=== PATIENT | male | born 1985 | race Caucasian/White ===

== ENCOUNTER 2016-05-11 10:31 | Emergency (ER) | payer SELFPAY ==
[~2016-05-11] VITALS: Ht 167.6 cm; Wt 74.5 kg
[~2016-05-11 10:31] MED LIST: IBUP800T23 PO; METH750T2 PO
[2016-05-11 10:35] VITALS: BP 109/78; PULSE 71; RESP 16; TEMP 98.1; O2SAT 98
[2016-05-11] MEDS ORDERED: LIDO3CRE TOPICAL (11:05)
[2016-05-11] MEDS ORDERED: PSYLPOW4 PO (11:06)
[2016-05-11] MEDS ORDERED: NORC5TAB PO (11:06)
--- NOTE | 2016-05-11 11:07 | PD ---
HPI Chief Complaint: Skin Problem Time Seen by Provider: 10:50 Travel History International Travel<30 days: No Contact w/Intl Traveler<30days: No Traveled to known affect area: No History of Present Illness HPI Patient is a 30 year old male presents to the ER for evaluation of a painful growth on his buttocks. He had been talking to his friends and family and they think he might have a hernia though no one has seen it. Patient states fairly painful but no bleeding. No hard stools reported. Symptoms for approximately 1 -2 weeks. No progression. No abdominal pain, n/v/d, dysuria. PFSH Past Medical History Medical History: Denies Significant Hx Diminished Hearing: No Gout: Yes Tetanus Vaccination: > 5 Years Influenza Vaccination: No Social History Alcohol Use: Yes (SOCIAL) Tobacco Use: No Substance Use: No Allergies-Medications (Allergen,Severity, Reaction): Coded Allergies: Morphine (Verified Allergy, Severe, RASH AND HIVES, 05/11/16) Reported Meds & Prescriptions Reported Meds & Active Scripts Active Stanford (Hydrocodone-Acetaminophen) 5-325 mg Tab 1 Tab PO Q6H PRN Psyllium Powder 1 Pow Pow 1 Scoop PO TID PRN 7 Days 1 rounded TEASPOON in 8 oz of liquid at the first sign of irregularity. Lidocaine-Hydrocortisone Topical 3-0.5 % Cream 1 Applic TOPICAL QID PRN Review of Systems Except as stated in HPI: all other systems reviewed are Neg Physical Exam Narrative GENERAL: WD/WN in nad. SKIN: Warm and dry. HEAD: Normocephalic. EYES: No scleral icterus. No injection or drainage. NECK: Supple, trachea midline. No JVD or lymphadenopathy. CARDIOVASCULAR: Regular rate and rhythm without murmurs, gallops, or rubs. RESPIRATORY: Breath sounds equal bilaterally. No accessory muscle use. GASTROINTESTINAL: Abdomen soft, non-tender, nondistended. RECTAL: There is an approximately 2cm in length hemorrhoid at the three o' clock position. Fairly tender, soft and pink. No evidence of thrombosis nor infection. MUSCULOSKELETAL: No cyanosis, or edema. BACK: Nontender without obvious deformity. No CVA tenderness. Data Data Last Documented VS Vital Signs Date Time Temp Pulse Resp B/P Pulse Ox O2 Delivery O2 Flow Rate FiO2 05/11/16 10:35 98.1 71 16 109/78 98 Orders Lidocaine 2% Jelly (Xylocaine 2% Jelly) (05/11/16 11:15) [facility] Medical Decision Making Medical Screen Exam Complete: Yes Emergency Medical Condition: Yes Differential Diagnosis External hemorrhoid, thrombosed hemorrhoid unlikely, constipation, rectal pain, abscess unlikely. Narrative Course Patient has uncomplicated non-thrombosed external hemorrhoid. Discussed need for follow up with a real time analyst and a primary care physician. ED I/D contraindicated at this time 2/2 non-thrombosed condition. stable for discharge. DIscussed symptomatic management. Diagnosis Primary Impression: External hemorrhoid Referrals: Oliver Perez MD Scripts Hydrocodone-Acetaminophen (Stanford)5-325 mg Tab1 Tab PO Q6H PRN (PAIN) #10 TAB Ref 0 Prov:Sal Briones MD 05/11/16 Psyllium Powder 1 Pow Pow1 Scoop PO TID PRN (CONSTIPATION) 7 Days Ref 0 1 rounded TEASPOON in 8 oz of liquid at the first sign of irregularity. Prov:Sal Briones MD 05/11/16 Lidocaine-Hydrocortisone Topical 3-0.5 % Cream1 Applic TOPICAL QID PRN (PAIN/ INFLAMMATION) #1 TUBE Ref 2 Prov:Sal Briones MD 05/11/16 Disposition: 01 DISCHARGE HOME Condition: Stable Sal Briones MD May 11, 2016 11:06
[2016-05-11] MEDS ORDERED: LIDOCAINE HCL 2% JELLY 5 ML SYRINGE TOPICAL ONE (11:15)
== END 2016-05-11 12:06 | disposition home or self-care (01) ==
LOC: PHED 10:31
DX: K64.4 Residual hemorrhoidal skin tags (principal)
CPT/HCPCS: 99283

== ENCOUNTER 2016-05-17 12:55 | Emergency (ER) | payer SELFPAY ==
[~2016-05-17] VITALS: Ht 167.6 cm; Wt 72.1 kg
[~2016-05-17 12:55] MED LIST changes: -IBUP800T23 PO; +LIDO3CRE TOPICAL; -METH750T2 PO; +NORC5TAB PO; +PSYLPOW4 PO
[2016-05-17 13:09] VITALS: BP 112/76; PULSE 74; RESP 16; TEMP 99.3; O2SAT 97
--- NOTE | 2016-05-17 13:41 | PD ---
HPI . sore throat for 3 days Chief Complaint: ENT Complaint Time Seen by Provider: 13:40 Travel History International Travel<30 days: No Contact w/Intl Traveler<30days: No Traveled to known affect area: No History of Present Illness HPI 30-year-old male here with complaints of a sore throat for 3 days. Patient says approximately a week ago he had flulike symptoms for about 5-6 days that are now resolved. Since then he reports having a sore throat and a fever of 101.8. He says throat is very painful and causing him difficulty. He also reports a very slight cough that is hindering his ability to work. He denies any mucus production. Denies any cold-like symptoms. PFSH Past Medical History Diminished Hearing: No Gout: Yes Social History Alcohol Use: Yes (SOCIAL) Tobacco Use: No Substance Use: No Allergies-Medications (Allergen,Severity, Reaction): Coded Allergies: Morphine (Verified Allergy, Severe, RASH AND HIVES, 05/17/16) Reported Meds & Prescriptions Reported Meds & Active Scripts Active Tessalon Perles (Benzonatate) 100 Mg Cap 100 Mg PO TID PRN Review of Systems General / Constitutional: No: Fever Eyes: No: Visual changes HENT: Positive: Sore Throat, No: Headaches Cardiovascular: No: Chest Pain or Discomfort Respiratory: No: Shortness of Breath Gastrointestinal: No: Abdominal Pain Genitourinary: No: Dysuria Musculoskeletal: No: Pain Skin: No Rash Neurologic: No: Weakness Psychiatric: No: Depression Endocrine: No: Polydipsia Hematologic/Lymphatic: No: Easy Bruising Physical Exam Narrative GENERAL: AAO x 3, no acute distress, Well-nourished, well-developed patient. SKIN: Warm and dry. No visible rashes or bruising. HEAD: Normocephalic and atraumatic. EYES: No scleral icterus. No injection or drainage. EOM intact, PERRLA ENT: No nasal drainage noted. Mucous membranes pink. Airway patent. No posterior pharynx erythema, edema or exudates. TMs normal bilaterally. NECK: Supple, trachea midline. No JVD. No lymphadenopathy. CARDIOVASCULAR: Regular rate and rhythm without murmurs, gallops, or rubs. RESPIRATORY: Breath sounds equal bilaterally. No accessory muscle use. No rhonchi or rales. Lungs are clear bilaterally. Very slight cough during exam. GASTROINTESTINAL: Abdomen soft, non-tender, nondistended. EXTREMITIES: No cyanosis or edema. BACK: Nontender without obvious deformity. No CVA tenderness. PSYCH: AAO x 3, normal affect. Data Data Last Documented VS Vital Signs Date Time Temp Pulse Resp B/P Pulse Ox O2 Delivery O2 Flow Rate FiO2 05/17/16 13:41 16 05/17/16 13:09 99.3 74 112/76 97 Orders Group A Rapid Strep Screen (05/17/16 13:44) Strep Culture (Group A) (05/17/16 13:46) [facility] Medical Decision Making Medical Screen Exam Complete: Yes Emergency Medical Condition: Yes Medical Record Reviewed: Yes Differential Diagnosis acute pharyngitis, cough, sinusitis Narrative Course 30-year-old male here with complaints of a sore throat for 3 days. Patient says approximately a week ago he had flulike symptoms for about 5-6 days that are now resolved. Since then he reports having a sore throat and a fever of 101.8. He says throat is very painful and causing him difficulty. He also reports a very slight cough that is hindering his ability to work. He denies any mucus production. Denies any cold-like symptoms. Patient seen and examined. I do not appreciate any abnormalities on examination. I will swab him for strep. Results were negative. I advised him that I do not recommend antibiotics as he does not seem to have a bacterial infection. Patient verbalized understanding of instructions, questions were answered, and thanked me for their care. I advised them if their condition worsens, please return to the nearest emergency room for further care. Diagnosis Primary Impression: Viral pharyngitis Additional Impression: Cough Additional Instructions: Please return to emergency department if your symptoms return or worsen. Follow up with your primary care provider. Take medications as prescribed. Med/Other Pt SpecificInfo: Prescription(s) given Scripts Benzonatate (Tessalon Perles)100 Mg [id number] Mg PO TID PRN (COUGH) #21 CAP Ref 0 Prov:Deejay Oliva MD 05/17/16 Disposition: 01 DISCHARGE HOME Condition: Stable Florina Alanis May 17, 2016 13:41
[2016-05-17] MEDS ORDERED: BENZ100 PO (14:18)
== END 2016-05-17 14:28 | disposition home or self-care (01) ==
LOC: PHEFT 12:55
DX: J02.9 Acute pharyngitis, unspecified (principal); B97.89 Other viral agents as the cause of diseases classified elsewhere; R05 Cough; R50.9 Fever, unspecified; Z87.39 Personal history of other diseases of the musculoskeletal system and connective tissue
CPT/HCPCS: 87081; 87880; 99283

== ENCOUNTER 2016-06-24 09:00 | Emergency (ER) | payer SELFPAY ==
[~2016-06-24] VITALS: Ht 167.6 cm; Wt 72.3 kg
[~2016-06-24 09:00] MED LIST changes: +BENZ100 PO; -LIDO3CRE TOPICAL; -NORC5TAB PO; -PSYLPOW4 PO
[2016-06-24 09:03] VITALS: BP 118/81; PULSE 67; RESP 16; TEMP 98.4; O2SAT 98
--- NOTE | 2016-06-24 09:42 | PD ---
HPI Chief Complaint: Skin Problem Time Seen by Provider: 09:25 Travel History International Travel<30 days: No Contact w/Intl Traveler<30days: No Traveled to known affect area: No History of Present Illness HPI 30-year-old male came to the emergency room with history of right eye irritation. Patient says that about 4-5 days ago some sand went into that eye. He rubbed it and since then the corner of the right eye lid has been irritated and pruritic. He has been scratching it or rubbing his eyes constantly and the corner of size progressively getting swollen and tender. This morning he woke up with a lot of mattering around that eyelid. He does not have a primary care doctor and hence decided come to the ER to get it checked. No history of visual problems. No history of excessive lacrimation. PFSH Past Medical History Narrative Medical List of his past medical, surgical, social and family history is reviewed from the nursing note. Diminished Hearing: No Gout: Yes Influenza Vaccination: No ?: Not Social History Alcohol Use: Yes (SOCIAL) Tobacco Use: No Substance Use: No Allergies-Medications (Allergen,Severity, Reaction): Coded Allergies: Morphine (Verified Allergy, Severe, RASH AND HIVES, 06/24/16) Comments List of his allergies reviewed from the nursing note. Reported Meds & Prescriptions Reported Meds & Active Scripts Active Erythromycin Opth Oint 5 Mg/Gm Oint 1 Applic LEFT EYE QID Narrative Medication List of his home medications reviewed from the nursing note. Review of Systems Except as stated in HPI: all other systems reviewed are Neg Physical Exam Narrative GENERAL: Awake, alert, no obvious distress SKIN: Focused skin assessment warm/dry. HEAD: Atraumatic. Normocephalic. EYES: Pupils equal and round. No scleral icterus. No injection or drainage. Lateral canthus area of the right eye the upper and the lower eyelid seems a little swollen and erythematous. Slightly tender to touch in the corresponding conjunctiva is injected. However there is no excessive irritation and lacrimation. Good extraocular eye movement and painless ENT: No nasal bleeding or discharge. Mucous membranes pink and moist. NECK: Trachea midline. No JVD. CARDIOVASCULAR: Regular rate and rhythm. No murmur appreciated. RESPIRATORY: No accessory muscle use. Clear to auscultation. Breath sounds equal bilaterally. GASTROINTESTINAL: Abdomen soft, non-tender, nondistended. Hepatic and splenic margins not palpable. MUSCULOSKELETAL: No obvious deformities. No clubbing. No cyanosis. No edema. NEUROLOGICAL: Awake and alert. No obvious cranial nerve deficits. Motor grossly within normal limits. Normal speech. PSYCHIATRIC: Appropriate mood and affect; insight and judgment normal. Data Data Last Documented VS Vital Signs Date Time Temp Pulse Resp B/P Pulse Ox O2 Delivery O2 Flow Rate FiO2 06/24/16 09:03 98.4 67 16 118/81 98 Orders Erythromycin 0.5% Opth Oint (Ilotycin 0. (06/24/16 09:45) [facility] Medical Decision Making Medical Screen Exam Complete: Yes Emergency Medical Condition: Yes Medical Record Reviewed: Yes Differential Diagnosis Acute angular blepharitis Narrative Course 9:50 AM patient will be discharged home with erythromycin ointment. Procedures EKG Prior to Arrival: No Diagnosis Primary Impression: Angular blepharitis of right eye Additional Instructions: Please return to the ER if the condition worsens or any other new concerns. Tigan hepatic ointment at least 3 times a day in the affected eye. Do not rub the eye to much as it'll make the condition worsens. Med/Other Pt SpecificInfo: Prescription(s) given Scripts Erythromycin Opth Oint 5 Mg/Gm Oint1 Applic LEFT EYE QID #1 TUBE Ref 0 Prov:Aleyda Enamorado MD 06/24/16 Disposition: 01 DISCHARGE HOME Condition: Stable Aleyda Enamorado MD June 24, 2016 09:42
[2016-06-24] MEDS ORDERED: ERYTHROMYCIN 0.5% OPTH OINT 3.5 GM TUBO RIGHT EYE ONE (09:45)
[2016-06-24] MEDS ORDERED: ERYTOIN10 LEFT EYE (09:48)
== END 2016-06-24 09:57 | disposition home or self-care (01) ==
LOC: PHEFT 09:00
DX: H01.002 Unspecified blepharitis right lower eyelid (principal); H01.001 Unspecified blepharitis right upper eyelid; M10.9 Gout, unspecified; Z88.5 Allergy status to narcotic agent; Z79.899 Other long term (current) drug therapy
CPT/HCPCS: 99283